=== PATIENT | male | born 1950 | race Caucasian/White ===

== ENCOUNTER 2017-06-17 02:23 | Inpatient (IN) | payer MEDICARE ==
[~2017-06-17] VITALS: Ht 162.6 cm; Wt 72.6 kg
[2017-06-17] MEDS ORDERED: TRAZ-147 PO (02:35)
[2017-06-17] MEDS ORDERED: PARO20TA51 PO (02:35)
[2017-06-17] MEDS ORDERED: LISI-603 PO (02:35)
[2017-06-17] MEDS ORDERED: NEOMY/BACITRA/POLYMYXIN B OINT UD PACKET TP ONE ×2 (02:45→02:58)
[2017-06-17 03:12] LABS: POTASSIUM 3.9 mmol/L (3.5-5.1)
[2017-06-17 03:17] LABS: ETHANOL < 3 MG/DL (0-0)
[2017-06-17 03:29] LABS: BILIRUBIN,DIRECT 0.1 mg/dL (0.0-0.2); BILIRUBIN,TOTAL 0.5 mg/dL (0.2-1.0); TOTAL PROTEIN, SERUM 7.3 g/dL (6.4-8.2)
[2017-06-17] MEDS ORDERED: IV NORMAL SALINE 1000 ML BAG IV ONE (03:30)
[2017-06-17 04:49] LABS: HEMATOCRIT 47.4 % (40-50); HEMOGLOBIN 15.9 G/DL (14.0-18.0); MEAN CORPUSCULAR HEMOGLOBIN 29.7 UUG (27.0-31.0); MEAN CORPUSCULAR HGB CONC 34 g/dL (32.0-37.0); MEAN CORPUSCULAR VOLUME 88.8 FL (82.0-92.0); PLATELET COUNT (AUTO) 309 K/UL (150-450); RED BLOOD CELL COUNT(AUTO) 5.34 MIL/UL (4.7-6.1)
[2017-06-17 04:50] LABS: EOSINOPHILS % (AUTO) 0.3 % (0.0-7.0); LYMPHOCYTES # (AUTO) 1.9 K/UL (0.8-4.8); LYMPHOCYTES % (AUTO) 19.3 % (20.5-51.5); MONOCYTES # (AUTO) 0.7 K/UL (0.1-1.30); MONOCYTES % (AUTO) 6.7 % (0.0-11.0); NEUTROPHILS # (AUTO) 7.4 K/UL (1.8-8.9); NEUTROPHILS % (AUTO) 73.7 % (38.5-71.5)
[2017-06-17] MEDS ORDERED: LORAZEPAM 2 MG/1 ML VIAL IV ONE (05:30)
[2017-06-17] MEDS ORDERED: LORAZEPAM 2 MG/1 ML VIAL ONE (05:50)
--- NOTE | 2017-06-17 06:41 | NUR ---
Pt. admitted to [facility], under care of Pamela Doyle. Belongs List completed
[2017-06-17 07:08] VITALS: BP 165/82
[2017-06-17] MEDS ORDERED: ZOLPIDEM 5 MG TABLET PO PRN (07:30)
[2017-06-17] MEDS ORDERED: ONDANSETRON 4 MG/2 ML VIAL IV PRN (07:30)
[2017-06-17] MEDS ORDERED: MAGNESIUM HYDROXIDE 30 ML LIQUID UDC PO PRN (07:30)
[2017-06-17] MEDS ORDERED: ACETAMINOPHEN 325 MG TABLET PO PRN (07:30)
--- NOTE | 2017-06-17 08:30 | NUR ---
Pt refused to have full assessment on skin. on wanted to show his right big toe. Pt is in no acute distress. IV on right ac intact. awaiting orders from hospitalist. Dr childress here to see pt for ARF. New orders received and carried out.
[2017-06-17] MEDS: IV NS 1000 ML 1,000 ML IV PRN (10:45)
[2017-06-17] MEDS: AMLODIPINE 5 MG TABLET PO SCH (10:54)
[2017-06-17 11:50] LABS: CREATININE 1.5 mg/dL (0.6-1.3); MAGNESIUM 1.8 mg/dL (1.8-2.4); PHOSPHOROUS 2.5 mg/dL (2.5-4.9); POTASSIUM 3.9 mmol/L (3.5-5.1)
[2017-06-17 11:57] VITALS: BP 160/67
[2017-06-17] MEDS: hydrALAZINE HCL 25 MG TABLET PO PRN (12:02)
[2017-06-17] MEDS: LORAZEPAM 1 MG TABLET PO PRN ×2 (14:43→21:21)
[2017-06-17] MEDS: DOCUSATE SODIUM 100 MG CAPSULE PO SCH (14:46)
[2017-06-17] MEDS: FAMOTIDINE 20 MG TABLET PO SCH (14:46)
[2017-06-17 15:18] LABS: *BILIRUBIN,URIN NEGATIVE (NEGATIVE); *BLOOD, URINE NEGATIVE (NEGATIVE); *CLARITY,URINE CLEAR (CLEAR); *COLOR,URINE YELLOW (YELLOW); *KETONES,URINE NEGATIVE (NEGATIVE); *PROTEIN,URINE NEGATIVE (NEGATIVE); *UROBILINOGEN,URINE 0.2 E.U./dl (NORMAL); LEUKOCYTE ESTERASE ,URINE NEGATIVE (NEGATIVE); NITRITE, URINE NEGATIVE (NEGATIVE); UGLUCOSE TRACE (NEGATIVE)
[2017-06-17 15:43] LABS: *CREATININE,URINE 190.3 mg/dL (30-125); *URINE TOTAL PROTEIN RANDOM 16.1 mg/dL (<150/24HR)
[2017-06-17 15:45] LABS: BACTERIA,URINE FEW /HPF (NONE SEEN); RBC,URINE 0-3 /HPF (0-3); SQUAMOUS EPITHELIAL CELL,UR FEW /HPF (NONE SEEN); WBC,URINE 0-3 /HPF (0-3)
[2017-06-17 16:07] VITALS: BP 138/71
[2017-06-17] MEDS: NEOMY/BACITRAC/POLYMI OINT 28.35 GM TUBE TOP SCH (17:06)
--- NOTE | 2017-06-17 18:30 | NUR ---
Pt is in no acute distress. No fall noted this shift. Pt cooperative with big toe dressing applied with triple abx. Call light is within reach.
--- NOTE | 2017-06-17 19:45 | NUR ---
PT RECEIVED IN BED, AWAKE. A/OX4. ABLE TO MAKE NEEDS KNOW. V/S STABLE. IN NO ACUTE DISTRESS. NO C/O PAIN AT THIS TIME. PT C/O OF FEELING ANXIOUS AND RESTLESS, UNABLE TO SETTLE DOWN. WILL ADMIN MEDICATIONS ORDERED. IVF INFUSING. SAFETY MEASURES IMPLEMENTED. CALL LIGHT WITHIN REACH.
[2017-06-17] MEDS: PAROXETINE HCL 20 MG TABLET PO SCH (21:17)
[2017-06-17] MEDS: TRAZODONE 100 MG TABLET PO SCH (21:17)
[2017-06-17 22:03] VITALS: BP 148/105
[2017-06-18 05:35] VITALS: BP 139/80
[2017-06-18] MEDS: IV NS 1000 ML 1,000 ML IV PRN (06:52)
--- NOTE | 2017-06-18 07:20 | NUR ---
Received patient asleep, non-labored breathing. Call light within reach.
[2017-06-18 07:21] LABS: BASOPHILS % (AUTO) 0.1 % (0.0-2.0); EOSINOPHILS # (AUTO) 0.2 K/uL (0.0-0.7); EOSINOPHILS % (AUTO) 2.4 % (0.0-7.0); HEMATOCRIT 42.7 % (36.7-47.1); LYMPHOCYTES % (AUTO) 48.6 % (20.5-51.5); MEAN CORPUSCULAR HEMOGLOBIN 31.3 uug (23.8-33.4); MEAN CORPUSCULAR HGB CONC 35 g/dL (32.5-36.3); MEAN CORPUSCULAR VOLUME 89.2 fL (73.0-96.2); MONOCYTES # (AUTO) 0.5 K/uL (2.0-10.0); MONOCYTES % (AUTO) 8.8 % (0.0-11.0); NEUTROPHILS # (AUTO) 2.5 K/uL (1.8-8.9); NEUTROPHILS % (AUTO) 40.1 % (38.5-71.5); PLATELET COUNT (AUTO) 238 K/uL (152-348); RED BLOOD CELL COUNT(AUTO) 4.78 MIL/uL (4.06-5.63)
[2017-06-18 07:39] LABS: WHITE BLOOD COUNT (AUTO) 6.2 K/uL (3.6-10.2)
[2017-06-18 07:43] LABS: THYROID STIMULATING HORMONE 1.071 mIU/mL (0.358-3.740)
[2017-06-18 07:53] LABS: BILIRUBIN,TOTAL 0.8 mg/dL (0.2-1.0); CREATININE 1.4 mg/dL (0.6-1.3); MAGNESIUM 1.9 mg/dL (1.8-2.4); PHOSPHOROUS 3.2 mg/dL (2.5-4.9); POTASSIUM 4.4 mmol/L (3.5-5.1); TOTAL PROTEIN, SERUM 6.3 g/dL (6.4-8.2)
--- NOTE | 2017-06-18 08:50 | NUR ---
IV dislodged from right antecubital arm.
[2017-06-18] MEDS: DOCUSATE SODIUM 100 MG CAPSULE PO SCH ×2 (09:00→09:14)
--- NOTE | 2017-06-18 09:00 | NUR ---
BP 180/87, asymptomatic. No chest pains or SOB noted. IV re started over right forearm G22. Patent and intact,IVF infusing well.
[2017-06-18] MEDS: AMLODIPINE 5 MG TABLET PO SCH ×2 (09:14→20:23)
[2017-06-18] MEDS: FAMOTIDINE 20 MG TABLET PO SCH (09:14)
[2017-06-18] MEDS: hydrALAZINE HCL 25 MG TABLET PO PRN ×2 (09:14→16:52)
[2017-06-18] MEDS: NEOMY/BACITRAC/POLYMI OINT 28.35 GM TUBE TOP SCH ×2 (09:15→16:53)
[2017-06-18] MEDS: LORAZEPAM 1 MG TABLET PO PRN ×2 (09:52→21:53)
--- NOTE | 2017-06-18 09:55 | NUR ---
Patient anxious. Ativan given.
[2017-06-18] MEDS ORDERED: IV 1/2NS 1000 ML 1,000 ML IV PRN (10:15)
[2017-06-18 11:36] VITALS: BP 155/78
[2017-06-18 15:59] VITALS: BP 169/85
[2017-06-18] MEDS: HYDROCODONE/APAP 5-325MG TABLET PO PRN (17:34)
[2017-06-18] MEDS ORDERED: AMLODIPINE 5 MG TABLET PO SCH (17:45)
--- NOTE | 2017-06-18 17:47 | NUR ---
Pain over shoulders rated as 7/10. PRN [place] given. BP 177/85, despite Hydralazine PRN, Dr. Shaw informed. Seen and examined by Dr. Shaw. Norvasc 5mg given.
--- NOTE | 2017-06-18 19:00 | NUR ---
End of shift Notes: Patient awake, alert x4. Anxious. Call light within reach. With tolerable pain over shoulder
--- NOTE | 2017-06-18 19:30 | NUR ---
Pt alert awake up out of bed in no distress. Pt denies any headaches or dizziness. IV site in tact to right forearm #20 running NS 60cc/hr. Continue to monitor.
[2017-06-18 20:00] VITALS: BP 175/88
[2017-06-18] MEDS: PAROXETINE HCL 20 MG TABLET PO SCH (20:23)
[2017-06-18] MEDS: TRAZODONE 100 MG TABLET PO SCH (20:23)
--- NOTE | 2017-06-18 22:05 | NUR ---
BP noted 142/74. Denies any headaches or dizziness. Pt's pulse noted 70. Pt requested Ativan at this time. Continue to monitor.
[2017-06-18 22:07] VITALS: BP 142/74
[2017-06-18] MEDS: hydrALAZINE HCL 50 MG TABLET PO SCH (22:44)
[2017-06-18] MEDS ORDERED: hydrALAZINE HCL 50 MG TABLET ONE (22:56)
[2017-06-18 23:39] VITALS: BP 150/68
--- NOTE | 2017-06-19 01:00 | NUR ---
Pt in room asleep. No acute distress noted. Last BP noted before 0000 was 150/68.
--- NOTE | 2017-06-19 03:37 | NUR ---
Pt alert awake. BP noted 138/56. No s/s of acute distress at this time. Continuing fluids 1/2 NS @ 60cc/hr. Continue to monitor.
[2017-06-19 04:56] VITALS: BP 124/59
[2017-06-19 06:59] LABS: BILIRUBIN,TOTAL 0.5 mg/dL (0.2-1.0); CREATININE 1.4 mg/dL (0.6-1.3); MAGNESIUM 1.5 mg/dL (1.8-2.4); PHOSPHOROUS 4.2 mg/dL (2.5-4.9); POTASSIUM 3.9 mmol/L (3.5-5.1); TOTAL PROTEIN, SERUM 6.4 g/dL (6.4-8.2)
[2017-06-19 07:23] LABS: BASOPHILS % (AUTO) 0.3 % (0.0-2.0); EOSINOPHILS # (AUTO) 0.2 K/uL (0.0-0.7); EOSINOPHILS % (AUTO) 2.3 % (0.0-7.0); HEMATOCRIT 44.6 % (40-50); HEMOGLOBIN 15.5 G/DL (14.0-18.0); LYMPHOCYTES % (AUTO) 42.3 % (20.5-51.5); MEAN CORPUSCULAR HEMOGLOBIN 31.2 UUG (27.0-31.0); MEAN CORPUSCULAR HGB CONC 35 g/dL (32.0-37.0); MEAN CORPUSCULAR VOLUME 89.9 FL (82.0-92.0); MONOCYTES # (AUTO) 0.6 K/UL (0.1-1.30); MONOCYTES % (AUTO) 8.5 % (0.0-11.0); NEUTROPHILS # (AUTO) 3.2 K/UL (1.8-8.9); NEUTROPHILS % (AUTO) 46.6 % (38.5-71.5); PLATELET COUNT (AUTO) 289 K/UL (150-450); RED BLOOD CELL COUNT(AUTO) 4.97 MIL/UL (4.7-6.1)
--- NOTE | 2017-06-19 07:30 | NUR ---
Pt in room alert awake and cooperative. No acute distress noted. States he still has some minor pain due to his history of right shoulder torn rotator cuff. BP noted 175/88. Routine Hydralazine to be administered. Refused to continue IV hydration of 12 NS 60cc/hr.
[2017-06-19] MEDS: FAMOTIDINE 20 MG TABLET PO SCH (08:10)
[2017-06-19] MEDS: DOCUSATE SODIUM 100 MG CAPSULE PO SCH (08:10)
[2017-06-19] MEDS: hydrALAZINE HCL 50 MG TABLET PO SCH (08:11)
[2017-06-19] MEDS: NEOMY/BACITRAC/POLYMI OINT 28.35 GM TUBE TOP SCH (09:51)
[2017-06-19] MEDS: AMLODIPINE 5 MG TABLET PO SCH (09:56)
[2017-06-19] MEDS: HYDROCODONE/APAP 5-325MG TABLET PO PRN (10:25)
--- NOTE | 2017-06-19 10:25 | NUR ---
BP noted 159/74. P 64. Pt states he refuses [place] sample. Dr Coy is aware of current situation. Pt states he would like to leave today. No acute distress noted at this time. [place] was given for comfort measures.
[2017-06-19 11:19] VITALS: BP 159/74
[2017-06-19] MEDS ORDERED: MAGNESIUM OXIDE 400 MG TABLET PO ONE (11:30)
[2017-06-19] MEDS ORDERED: HYDR-4077 PO (11:37)
[2017-06-19] MEDS ORDERED: AMLO10TA4 PO (11:37)
[2017-06-19] MEDS ORDERED: HYDR-548 PO (11:37)
[2017-06-19] MEDS ORDERED: NEOM28.3 TOP (11:37)
--- NOTE | 2017-06-19 12:00 | NUR ---
PREPARED FOR DISCHARGE. DR. LEON SPOKE WITH PATIENT.
--- NOTE | 2017-06-19 12:50 | NUR ---
DISCHARGED AMBULATORY, ACCOMPANIED BY Gama ERNANDEZ US TO SELF. LEFT ON BICYCLE.
[2017-06-22 07:07] LABS: A/G RATIO 1.4 (0.7-1.7); ALBUMIN 3.6 g/dL (2.9-4.4); ALPHA-1-GLOBULIN 0.1 g/dL (0.0-0.4); ALPHA-2-GLOBULIN 0.6 g/dL (0.4-1.0); BETA GLOBULIN 0.8 g/dL (0.7-1.3); GLOBULIN, TOTAL 2.5 g/dL (2.2-3.9); M-SPIKE Not Observed g/dL (Not Observed)
== END 2017-06-19 12:50 | disposition home or self-care (01) | DRG 683 ==
LOC: ER 02:23 → TELE 06:26 → MED 20:00
PROVIDERS: ADMIT Nurse Practitioner Acute Care; ATTEND Internal Medicine
DX: N17.0 Acute kidney failure with tubular necrosis (principal); E87.0 Hyperosmolality and hypernatremia; I12.9 Hypertensive chronic kidney disease with stage 1 through stage 4 chronic kidney disease, or unspecified chronic kidney disease; Y92.89 Other specified places as the place of occurrence of the external cause; E86.0 Dehydration; S91.102A Unspecified open wound of left great toe without damage to nail, initial encounter; Z59.0 Homelessness; W22.8XXA Striking against or struck by other objects, initial encounter; Z87.01 Personal history of pneumonia (recurrent); F32.9 Major depressive disorder, single episode, unspecified; Z79.899 Other long term (current) drug therapy; F41.9 Anxiety disorder, unspecified; K59.00 Constipation, unspecified; I10 Essential (primary) hypertension; E88.09 Other disorders of plasma-protein metabolism, not elsewhere classified; N18.9 Chronic kidney disease, unspecified; K21.9 Gastro-esophageal reflux disease without esophagitis
CPT/HCPCS: 36415; 70030-TC; 71010; 73620; 76770; 83735; 83970; 84100; 84155; 84156; 84165; 84300; 84443; 85025; 85730; 87086; 93005; 93307; A4663; G0480; J2060; J3490; J7030